=== PATIENT | male | born 1965 | race Caucasian/White ===

== ENCOUNTER → 2020-01-01 | Day surgery (SDC) | payer BC, OTHER ==
[~2020-01-01] MED LIST: ARIMIDEX1 MG PO; FOLIC ACID PO; FUROSEMIDE40 MG PO; MOBIC7.5 MG PO; PRAVASTATIN SOD20 MG PO; PROPOFOL IV EMULSION 10 MG/ML 20 ML VIAL ONE; SPIRONOLACTONE25 MG PO; TESTOSTERO200 MG/1 M IJ; VIT D2 PO
[2020-01-01 12:03] VITALS: BP 171/85
== END | disposition home or self-care (01) ==
LOC: OR 08:55
PROVIDERS: ATTEND Internal Medicine Gastroenterology
DX: Z09 Encounter for follow-up examination after completed treatment for conditions other than malignant neoplasm (principal); D12.3 Benign neoplasm of transverse colon; D12.4 Benign neoplasm of descending colon; D12.5 Benign neoplasm of sigmoid colon; K57.30 Diverticulosis of large intestine without perforation or abscess without bleeding; K64.8 Other hemorrhoids; G47.33 Obstructive sleep apnea (adult) (pediatric); I10 Essential (primary) hypertension; R00.1 Bradycardia, unspecified; I45.10 Unspecified right bundle-branch block; Z01.810 Encounter for preprocedural cardiovascular examination; Z01.812 Encounter for preprocedural laboratory examination; Z11.59 Encounter for screening for other viral diseases; Z68.44 Body mass index [BMI] 60.0-69.9, adult
CPT/HCPCS: 45384; 45385; 93005; J2704; U0002; 45378